=== PATIENT | male | born 2000 | race Two or more races ===

== ENCOUNTER 2021-08-29 02:14 | Emergency (ER) | payer SELFPAY ==
[~2021-08-29] VITALS: Ht 157.5 cm; Wt 65.0 kg
[2021-08-29 02:38] LABS: BASO # 0.1 x10^3/uL (0.0-0.2); BASO % 1 % (0-3); EOS % 0 % (0-3); HEMATOCRIT 43.3 % (39.0-53.0); HEMOGLOBIN 15.2 g/dL (13.0-17.5); LYMPH # 1.7 x10^3/uL (1.0-4.8); LYMPH % 25 % (24-48); MEAN CORPUSCULAR HEMOGLOBIN 34 pg (25-35); MEAN CORPUSCULAR HGB CONC 35 g/dL (31-37); MEAN CORPUSCULAR VOLUME 96 fL (79-100); MONO # 0.5 x10^3/uL (0.0-1.1); MONO % 8 % (0-9); NEUT # 4.5 x10^3/uL (1.8-7.7); NEUT % 66 % (31-73); PLATELET COUNT 276 x10^3/uL (140-400); RED BLOOD COUNT 4.54 x10^6/uL (4.30-5.70); RED CELL DISTRIBUTION WIDTH 13.3 % (11.5-14.5); WHITE BLOOD COUNT 6.8 x10^3/uL (4.0-11.0)
[2021-08-29 02:51] LABS: CALCIUM 8.9 mg/dL (8.5-10.1); GFR 94.3; POTASSIUM 3.3 mmol/L (3.5-5.1)
[2021-08-29 02:52] LABS: PROTHROMBIN TIME PATIENT 12.6 SEC (11.7-14.0)
[2021-08-29 02:58] LABS: ALBUMIN 4.6 g/dL (3.4-5.0); ALBUMIN/GLOBULIN RATIO 1.5 (1.0-1.7); TOTAL BILIRUBIN 0.4 mg/dL (0.2-1.0); TOTAL PROTEIN 7.7 g/dL (6.4-8.2)
[2021-08-29] MEDS ORDERED: CONTRAST GIVEN. MC PRN (03:00)
[2021-08-29] MEDS ORDERED: IOHEXOL 300 MG/ML 100ML VIAL. IV ONE (03:00)
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
[2021-08-29 04:15] LABS: BACTERIA,URINE 0 /HPF (0-FEW); RBC,URINE OCC /HPF (0-2); WBC,URINE 0 /HPF (0-4)
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
--- NOTE | 2021-08-29 06:10 | EKG ---
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
[2021-08-29 06:27] VITALS: BP 155/87
== END 2021-08-29 06:30 | disposition home or self-care (01) ==
LOC: ER 02:14
DX: S92.252A Displaced fracture of navicular [scaphoid] of left foot, initial encounter for closed fracture (principal); S80.01XA Contusion of right knee, initial encounter; S60.512A Abrasion of left hand, initial encounter; S60.511A Abrasion of right hand, initial encounter; S30.811A Abrasion of abdominal wall, initial encounter; S50.311A Abrasion of right elbow, initial encounter; M54.2 Cervicalgia; R10.2 Pelvic and perineal pain; R51.9 Headache, unspecified; V29.88XA Motorcycle rider (driver) (passenger) injured in other specified transport accidents, initial encounter; Y92.488 Other paved roadways as the place of occurrence of the external cause; Y93.89 Activity, other specified; Y99.8 Other external cause status
CPT/HCPCS: 36415; 70450; 71260; 72125; 73070; 73090; 73110; 73130; 73562; 74177; 80053; 81001; 83690; 84484; 85025; 85610; 85730; 86850; 86900; 86901; 93005; 99285; G0480